=== PATIENT | male | born 1945 | race Caucasian/White ===

== ENCOUNTER 2018-10-31 10:34 | Emergency (ER) | payer OTHER ==
[2018-10-31] MEDS ORDERED: IPRATROPIUM/ALBUTEROL 3 ML DEYVIAL IH ONE (11:50)
[2018-10-31] MEDS ORDERED: DOXYCYCLINE HYCLATE 100 MG CAP/TAB PO ONE (11:50)
--- NOTE | 2018-10-31 11:53 | EDPHY ---
H & P Stated Complaint: cough nasal congestion x 1 month Time Seen by Provider: 10/31/18 11:11 HPI/ROS: CHIEF COMPLAINT: Productive cough HISTORY OF PRESENT ILLNESS: 72-year-old male presents with a 1 month history of productive cough. Onset of nasal congestion, sore throat and cough 1 month ago. Associated with subjective fever. The cough has gradually worsened and is now productive of yellowish phlegm. Associated with shortness of breath. Tolerating oral fluids and food well. No prior history of pneumonia. REVIEW OF SYSTEMS: complete 10 point ROS reviewed and is negative except for the noted elements in the HPI - Personal History Current Tetanus/Diphtheria Vaccine: No Current Tetanus Diphtheria and Acellular Pertussis (TDAP): No - Medical/Surgical History Hx Asthma: No Hx Chronic Respiratory Disease: No Hx Diabetes: No Hx Cardiac Disease: No Hx Renal Disease: No Hx Cirrhosis: Yes Hx Alcoholism: No Hx HIV/AIDS: No Hx Splenectomy or Spleen Trauma: No Other PMH: cirrhosis,colon resection secondary to colon ca. htn, - Social History Smoking Status: Former smoker Alcohol Use: Sober Drug Use: None - Physical Exam Exam: General Appearance: Alert, pleasant, nontoxic appearing Eyes: Pupils equal and round, no conjunctival pallor or injection ENT, Mouth: Mucous membranes moist Neck: Normal inspection Respiratory: Diffuse expiratory wheezing Cardiovascular: Regular rate and rhythm Gastrointestinal: Abdomen is soft and nontender Neurological: A&O, nonfocal, normal gait Skin: Warm and dry, no rash Extremities: Nontender, no pedal edema Psychiatric: Mood and affect normal Constitutional: Initial Vital Signs Temperature (C) 37.1 C 10/31/18 10:46 Heart Rate 75 10/31/18 10:46 Respiratory Rate 16 10/31/18 10:46 Blood Pressure 139/64 H 10/31/18 10:46 O2 Sat (%) 97 10/31/18 10:46 O2 Delivery Mode Room Air O2 (L/minute) 94 Allergies/Adverse Reactions: levofloxacin [From Levaquin] Allergy (Verified 06/30/14 12:22) Home Medications: Medication Instructions Recorded Albuterol [Proventil Inhaler HFA 2 puffs IH QID PRN #1 mdi 10/31/18 (*)] Doxycycline Hyclate 100 mg PO BID #20 tablet 10/31/18 Protonix 10/31/18 Spironolactone 10/31/18 Medical Decision Making - Diagnostics Imaging Results: Chest x-ray independently reviewed by me reveals a left lower lobe infiltrate. Imaging: I viewed and interpreted images myself ED Course/Re-evaluation: This patient presents with cough and bronchospasm. Chest x-ray reveals a left lower lobe infiltrate. A DuoNeb was given and doxycycline 100 mg orally given. Decreased wheezing after the duoneb and feels better. O2 sat 94% RA. This is an appropriate patient for outpatient treatment of pneumonia. He is tolerating oral fluids well, has normal vital signs and normal oxygen saturation. Warning signs discussed. - Data Points Medications Given: Discontinued Medications Albuterol/Ipratropium (Duoneb) 3 ml IH EDNOW ONE Stop: 10/31/18 11:51 Last Admin: 10/31/18 11:58 Dose: 3 ml Doxycycline Hyclate (Doxycycline Hyclate) 100 mg PO EDNOW ONE PRN Reason: Protocol Stop: 10/31/18 11:51 Last Admin: 10/31/18 11:57 Dose: 100 mg Departure - Departure Disposition: Home, Routine, Self-Care Clinical Impression: Pneumonia Qualifiers: Pneumonia type: due to unspecified organism Laterality: left Lung location: lower lobe of lung Qualified Code(s): J18.1 - Lobar pneumonia, unspecified organism Condition: Good Instructions: Bacterial Pneumonia (ED) Additional Instructions: Tylenol 650 mg every 4 hours as needed for fever. Drink plenty of fluids. Return for worsening symptoms, shortness of breath or any concerns. Followup with your doctor in 2 days for recheck. Referrals: LEILA AMES [Other] - 2-3 days without fail Prescriptions: Albuterol [Proventil Inhaler HFA (*)] 2 puffs IH QID PRN #1 mdi PRN Reason: Short Of Breath/Dyspnea Doxycycline Hyclate 100 mg PO BID #20 tablet
[2018-10-31 12:17] VITALS: BP 124/52
== END 2018-10-31 12:16 | disposition home or self-care (01) ==
DX: J18.1 Lobar pneumonia, unspecified organism (principal); I10 Essential (primary) hypertension